=== PATIENT | male | born 1940 | race Caucasian/White ===

== ENCOUNTER 2016-10-30 11:15 | Emergency (ER) | payer MEDICARE, BC ==
[2016-10-30] MEDS ORDERED: Albuterol 2.5 MG/3 ML NEB.SOL* (0.083%) INH ONE (12:21)
[2016-10-30] MEDS ORDERED: Ipratropium 0.5MG/2.5ML NEB* 0.5 MG/2.5 ML NEB.SOLN INH ONE (12:22)
--- NOTE | 2016-10-30 12:25 | RAD ---
INDICATION: Cough. COMPARISON: None. TECHNIQUE: Dual energy PA and routine lateral views of the chest were obtained. REPORT: Patchy alveolar consolidation throughout the RIGHT lung most confluent at the lung base. Negative for volume loss. Small RIGHT pleural effusion. Negative for pneumothorax. Negative for cardiomegaly. Unremarkable central pulmonary vasculature and mediastinal contours. IMPRESSION: Patchy alveolar consolidation in the RIGHT lung consistent with pneumonia. Small RIGHT pleural effusion. Radiographic follow-up after therapy suggested to assess for resolution.
--- NOTE | 2016-10-30 12:46 | UC ---
Respiratory Complaint HPI - HPI Summary HPI Summary: COUGH X 2 DAYS + CHEST CONGESTION , NASAL CONGESTION , NO FEVER, + SOB ON EXERTION - History of Current Complaint Chief Complaint: UCRespiratory Stated Complaint: COUGH Time Seen by Provider: 10/30/16 11:56 Hx Obtained From: Patient Onset/Duration: Gradual Onset, Lasting Days - 2, Still Present Timing: Constant Severity Initially: Moderate Severity Currently: Moderate Character: Cough: Productive Aggravating Factors: Exertion, Deep Breaths Alleviating Factors: Bronchodilator Associated Signs And Symptoms: Positive: Dyspnea, Wheezing, URI, Nasal Congestion. Negative: Fever, Chills, Pleuritic Chest Pain, Hemoptysis, Dizziness, Calf Pain, Calf Swelling - Allergies/Home Medications Allergies/Adverse Reactions: Allergies Allergy/AdvReac Type Severity Reaction Status Date / Time No Known Allergies Allergy Verified 10/30/16 11:44 Home Medications: Home Medications Albuterol HFA INHALER* [Ventolin HFA Inhaler*] 2 puff INH Q4H PRN 10/30/16 [ History Confirmed 10/30/16] Allopurinol TAB* [Zyloprim 100 MG TAB*] 200 mg PO DAILY 10/30/16 [History Confirmed 10/30/16] Clopidogrel TAB* [Plavix TAB*] 75 mg PO DAILY 10/30/16 [History Confirmed ] Fluticasone HFA 110 mcg(NF) [Flovent HFA 110 mcg(NF)] 2 puff INH BID 10/30/16 [ History Confirmed 10/30/16] Fluticasone NASAL SPRAY 50MCG* [Flonase NASAL SPRAY 50MCG*] 2 spray BOTH NARES DAILY 10/30/16 [History Confirmed 10/30/16] Furosemide TAB* [Lasix TAB*] 20 mg PO DAILY 10/30/16 [History Confirmed 10/30/16 ] Guaifenesin-Codeine [Coditussin AC 200-10 mg/5Ml] 10 ml PO QID PRN 10/30/16 [ History Confirmed 10/30/16] Leflunomide [Arava] 20 mg PO DAILY 10/30/16 [History Confirmed 10/30/16] Nifedipine [Nifedipine ER] 90 mg PO DAILY 10/30/16 [History Confirmed 10/30/16] Pravastatin Sodium [Pravachol] 20 mg PO EVERY OTHER DAY 10/30/16 [History Confirmed 10/30/16] Spiriva Inhaler DEVICE* [Tiotropium Inhaler DEVICE*] 2 inh INH DAILY 10/30/16 [ History Confirmed 10/30/16] Valsartan [Valsartan 320 MG] 320 mg PO DAILY 10/30/16 [History Confirmed ] traZODone TAB* [Desyrel TAB*] 50 mg PO BEDTIME 10/30/16 [History Confirmed 10/30] PMH/Surg Hx/FS Hx/Imm Hx Cardiovascular History Of: Reports: Cardiac Disorders - CAD, Hypertension Respiratory History Of: Reports: COPD - Surgical History Surgical History: Yes Surgery Procedure, Year, and Place: UMBILICAL HERNIA REPAIR - Family History Known Family History: Negative: Diabetes - Social History Alcohol Use: Daily Alcohol Amount: TWO AT NIGHT Substance Use Type: None Smoking Status (MU): Former Smoker Type: Cigarettes When Did the Patient Quit Smoking/Using Tobacco: 1997 Review of Systems Constitutional: Fatigue Skin: Negative Eyes: Negative ENT: Nasal Discharge Respiratory: Shortness Of Breath, Cough Cardiovascular: Negative Gastrointestinal: Negative Genitourinary: Negative All Other Systems Reviewed And Are Negative: Yes Physical Exam Triage Information Reviewed: Yes Appearance: Well-Appearing, No Pain Distress, Well-Nourished Vital Signs: Initial Vital Signs Temp 99.7 F 10/30/16 11:45 Pulse 103 10/30/16 11:45 Resp 26 10/30/16 11:45 BP 100/71 10/30/16 11:45 Pulse Ox 93 10/30/16 11:45 Vital Signs Reviewed: Yes Eye Exam: Normal Eyes: Positive: Conjunctiva Clear ENT: Positive: Normal ENT inspection, Hearing grossly normal, Pharynx normal Neck: Positive: Supple, Nontender, No Lymphadenopathy Respiratory: Positive: Chest non-tender, No accessory muscle use, Decreased breath sounds Cardiovascular: Positive: Tachycardia Skin Exam: Normal UC Diagnostic Evaluation - Laboratory O2 Sat by Pulse Oximetry: 93 Respiratory Course/Dx - Differential Dx/Diagnosis Provider Diagnoses: PNEUMONIA Discharge - Discharge Plan Condition: Good Disposition: HOME Prescriptions: DOXYcycline CAP(*) [DOXYcycline 100MG CAP(*)] 100 mg PO BID #20 cap predniSONE TAB* [Deltasone TAB*] 40 mg PO DAILY #10 tab Referrals: Asif Baez MD [Primary Care Provider] - 2 Days
[2016-10-30 13:07] VITALS: BP 119/65
== END 2016-10-30 13:09 | disposition home or self-care (01) ==
LOC: UCCORT 11:15
DX: J18.9 Pneumonia, unspecified organism (principal); J91.8 Pleural effusion in other conditions classified elsewhere; I10 Essential (primary) hypertension; J44.9 Chronic obstructive pulmonary disease, unspecified; Z87.891 Personal history of nicotine dependence; I25.10 Atherosclerotic heart disease of native coronary artery without angina pectoris; Z79.02 Long term (current) use of antithrombotics/antiplatelets
CPT/HCPCS: 71020; 99213; G0463; J7644

== ENCOUNTER 2019-06-30 09:13 | Emergency (ER) | payer MEDICARE, BC ==
--- OUTSIDE RECORDS SUMMARY | 2019-06-30 09:20 | XMS REPORT | Continuity of Care Document ---
:1940 External Reference #:[id number] Author Name Sally Fan Care Team Providers Name Role Phone Asif Baez MD - Family Medicine Care Team Information Crusher Operator Lucretia Langley MD - Physical Medicine Care Team Information Crusher Operator & Rehabilitation Problems Active Problems Provider Date Benign essential hypertension Lamonte Mcclure MD Onset: 12/15/2016 Melena Lamonte Mcclure MD Onset: 12/15/2016 Duodenal ulcer without hemorrhage, without Lamonte Mcclure MD Onset: 06/08/2017 perforation AND without obstruction Iron deficiency anemia Lamonte Mcclure MD Onset: 06/08/2017 Retention of urine Janice Hernandez M.D. Onset: 08/05/2017 Chronic kidney disease stage 3 Janice Hernandez M.D. Onset: 08/05/2017 Benign prostatic hypertrophy with outflow Janice Hernandez M.D. 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 Onset: 11/21/2017 immunity measurement of gamma interferon antigen response without active tuberculosis High enzyme level in serum Abril Kaur M.D. Onset: 11/21/2017 Bacteremia caused by Gram-negative bacteria Abril Kaur M.D. Onset: 2017 Hypokalemia Abril Kaur M.D. Onset: 11/21/2017 Digestive symptom Lamonte Mcclure MD Onset: 02/03/2018 Backache Onset: 07/23/2017 Congestive heart failure Onset: 04/04/2017 Congestive heart failure Onset: 05/27/2017 Injury of kidney Onset: 05/27/2017 Anemia Onset: 05/27/2017 Syncope Onset: 07/22/2017 Sciatica Onset: 07/23/2017 Social History Type Date Description Comments Sex Unknown Tobacco Use Start: Unknown End: Former Cigarette Smoker 1-2 packers per day Unknown 1 Pack Daily for 45 years Smoking Status Reviewed: 03/28/19 Former Cigarette Smoker 1-2 packers per day 1 Pack Daily for 45 years Smokeless Tobacco Former Smokeless Tobacco User, Used Occasionally ETOH Use Uses Alcohol Daily 2 5oz glasses of red wine Tobacco Use Start: Unknown End: Patient is a former smoker Recreational Drug Use Denies Drug Use Allergies, Adverse Reactions, Alerts Active Allergies Reaction Severity Comments Date Pravachol 12/15/2016 Latex 09/30/2017 Medications Active Medications SIG Qnty Indications Ordering Date Provider Aspirin 81 1 by mouth every I25.10 Vignesh Maynard 06/01/2019 81mg day MWRosalee Cedillo M.D., FACC Tablets Pantoprazole Sodium 1 by mouth every 90tabs K31.89 Shoaib Perry [address] Pittman as instructed inj. 6units E78.2 Nicola Da Silva MD 02/23/2018 75mg/ml biweekly Solution Pen-Inject Potassium Chloride Take Two Tablets 180tabs Vignesh Maynard 02/02/2018 [place] ER By Mouth Every Masood Cedillo, FACC 20Meq Tablets Morning And 1 In ER The Evening Metoprolol Tartrate Take 1 And 1/2 270tabs R00.0 Vignesh Maynard 2017 Tablets By Mouth Masood Cedillo, FACC 25mg Tablets Two Times A Day Furosemide 1 by mouth every Unknown 40mg day Tablets Entresto Take One Tablet By 60tabs I25.10 Nicola Da Silva MD 24-26mg Mouth Twice A Day Tablets Imodium A-D 1 tab three times Unknown 2mg a day as needed Tablets Flonase Allergy 1 spray each nare Unknown Relief every day 50mcg/Act Suspension Allopurinol 1 by mouth every Unknown 100mg day Tablets Clopidogrel Take One Tablet By Unknown Bisulfate Mouth Every Day 75mg Start 4 Days Prior Tablets To Procedure Albuterol Sulfate nebulized bid Unknown (2.5mg/3ML) 0.083% Nebulizer Folic Acid 1 by mouth every Unknown 1mg day Tablets Oxycodone HCL 1 tab by mouth Unknown 5mg every 8 hours Capsules Proventil HFA 4 Times A Day as Unknown needed for 108(90Base) mcg/Act Shortness Of Aerosol Breath Flovent HFA 1 puffs twice Unknown daily 220mcg/Act Aerosol Spiriva Handihaler 1 inhalation every Unknown day 18mcg Capsules Immunizations CPT Code Status Date Vaccine Lot # [id number] Given Unknown Pneumococcal Conjugate Vaccine 13 Valent For Intramuscular Use Vital Signs Date Vital Result Comment 06/01/2019 1:07pm BP Systolic Sitting Left Arm 124 mmHg BP Diastolic Sitting Left Arm 80 mmHg Heart Rate 76 /min Respiratory Rate 16 /min Height 70 inches 5'10" Weight 204.00 lb BMI (Body Mass Index) 29.3 kg/m2 BSA (Body Surface Area) 2.10 m2 [place] body weight in kilograms 75 kg O2 % BldC Oximetry 96 % 05/09/2019 1:02pm Weight 196.00 lb Results Test Date Facility Test Result H/L Range Note Urine Dipstick 05/09/2019 [facility]a Color yellow Yellow Ua Clarity clear Clear Ua Leuko neg Negative Ua Nitrite neg Negative Ua Urobilinogen 0.2 0.2 - 1.0 E.U./dL Ua Protein neg Negative Ua PH 6.0 Low 6.5-7.5 Ua Blood neg Negative Ua Specific [place] 1.015 1.010-1.030 Ua Ketones neg Negative Ua Bilirubin neg Negative Ua Glucose neg Negative Procedures Date Code Description Status 06/01/2019 37318 EKG-Tracing And Report Completed 05/09/2019 94928 Measurement Post Voiding Residual Urine By Completed Ultrasound,Non-Imaging 05/09/2019 89730 complex uroflowmetry electronic Completed 06/23/2017 [id number] Colonoscopy Completed 04/04/2002 [id number] Colonoscopy Completed Medical Devices Description No Information Available Encounters Type Date Location Provider Dx Diagnosis Office Visit 06/01/2019 Cardiology Office Olivia Sabrinas R60.0 Localized edema 1:00p B., PA I25.5 Ischemic cardiomyopathy I25.10 Athscl heart disease of [place] coronary artery w/o ang pctrs I10 Essential (primary) hypertension E78.2 Mixed hyperlipidemia I65.23 Occlusion and stenosis of bilateral carotid arteries Office Visit 05/09/2019 1:00p Urology Miguel Fernandez, N40.1 Benign prostatic PA hyperplasia with lower urinary tract symp Office Visit 02/01/2019 10:45a GI Shoaib Perry MD K31.89 Other diseases of stomach and duodenum R60.0 Localized edema Assessments Date Code Description Provider 06/01/2019 R60.0 Localized edema Olivia, Marlyss B., PA 06/01/2019 I25.5 Ischemic cardiomyopathy Olivia, Marlyss B., PA 06/01/2019 I25.10 Atherosclerotic heart disease of [place] Olivia, Marlyss B. , PA coronary artery with 06/01/2019 I10 Essential (primary) hypertension Olivia, Marlyss B., PA 06/01/2019 E78.2 Mixed hyperlipidemia Olivia, Marlyss B., PA 06/01/2019 I65.23 Occlusion and stenosis of bilateral carotid Olivia, Marlyss B., PA arteries 05/09/2019 N40.1 Benign prostatic hyperplasia with lower Miguel Fernandez PA urinary tract sympto 02/01/2019 K31.89 Other diseases of stomach and duodenum Shoaib Perry MD 02/01/2019 R60.0 Localized edema Shoaib Perry MD Plan of Treatment Future Appointment(s):12/03/2019 2:00 pm - Teo Baker, PA at Cardiology Kpxdkf6308/06/2019 11:30 am - Shoaib Perry MD at GI02/01/2019 - Shoaib Perry MDK31.89 Other diseases of stomach and duodenumNew Medication: Pantoprazole Sodium 20 mg - 1 by mouth every dayComments:plan on cutting back on ppi diarrhea has resolvedconsider boost or ensureFollow up:6 mlidtlD50.0 Localized edema Functional Status Functional Condition Comment Date Status Requires assistance with ambulating Active Glasses Active Complete lower and upper and lower dentures Active Mental Status Description No Information Available Referrals Description No Information Available
--- OUTSIDE RECORDS SUMMARY | 2019-06-30 09:20 | XMS REPORT | Continuity of Care Document ---
:1940 External Reference #:[id number] Author Name Miguel Fernandez PA Address [address], [address] [place] [address] Care Team Providers Name Role Phone Asif Baez MD - Family Medicine Care Team Information Bonding Machine Setter Lucretia Langley MD - Physical Medicine Care Team Information Bonding Machine Setter & Rehabilitation Problems Active Problems Provider Date [...] MD Onset: 09/30/2017 Atherosclerotic heart disease of [place] Nicola Da Silva MD Onset: 11/16/2017 coronary [...] Medications SIG Qnty Indications Ordering Date Provider Pantoprazole Sodium 1 by mouth every 90tabs K31.89 Shoaib Perry, [address] Pittman as instructed inj. 6units E78.2 Nicola Da Silva MD 02/23/2018 75mg/ml biweekly Solution Pen-Inject Potassium Chloride Take Two Tablets 180tabs Vignesh Maynard 02/02/2018 [place]ress[place] ER By Mouth Every M.Masood, FACC 20Meq Tablets Morning And 1 In ER The Evening Metoprolol Tartrate Take 1 And /2 270tabs R00.0 Vignesh Maynard 2017 Tablets By [...] Start 4 Days Prior Tablets To Procedure Aspirin Take One Tablet By 30taVignesh Olmedo 81mg Tablets Mouth Every Day Masood Cedillo, FACC Albuterol Sulfate nebulized bid Unknown (2.5mg/3ML) 0.083% [...] CPT Code Status Date Vaccine Lot # [id number] Given Unknown Pneumococcal Conjugate Vaccine 13 Valent For Intramuscular Use Vital Signs Date Vital Result Comment 05/09/2019 1:02pm Weight 196.00 lb 02/01/2019 10:51am BP Systolic Sitting Left Arm 120 mmHg BP Diastolic Sitting Left Arm 80 mmHg Heart Rate 78 /min Respiratory Rate 16 /min Height 69 inches 5'9" Weight 200.00 lb BMI (Body Mass Index) 29.5 kg/m2 BSA (Body Surface Area) 2.07 m2 [place] body weight in kilograms 73 kg O2 % BldC Oximetry 96 % Ra Results Description No Information Available Procedures Date Code Description Status 05/09/2019 71038 Measurement Post Voiding Residual Urine By Completed Ultrasound,Non-Imaging 06/23/2017 [id number] Colonoscopy Completed 04/04/2002 [id number] Colonoscopy Completed Medical Devices Description No Information Available Encounters Type Date Location Provider Dx Diagnosis Office Visit 05/09/2019 Urology Miguel Fernandez, N40.1 Benign prostatic 1:00p PA hyperplasia with lower urinary tract symp Office Visit 02/01/2019 GI Shoaib Perry MD K31.89 Other diseases of 10:45a stomach and duodenum R60.0 Localized edema Office Visit 11/22/2018 2:20p Cardiology Olivia, I25.5 Ischemic Office Teo Mack cardiomyopathy PA I25.10 Athscl heart disease of [place] coronary artery w/o ang pctrs I10 Essential (primary) hypertension E78.2 Mixed hyperlipidemia I65.23 Occlusion and stenosis of bilateral carotid arteries Assessments Date Code Description Provider 05/09/2019 N40.1 Benign prostatic hyperplasia with lower IannottaMiguel PA urinary tract sympto 02/01/2019 K31.89 Other diseases of stomach and duodenum Shoaib Perry MD 02/01/2019 R60.0 Localized edema Shoaib Perry MD 11/22/2018 I25.5 Ischemic cardiomyopathy Teo Baker, PA 11/22/2018 I25.10 Atherosclerotic heart disease of [place] Teo Baker , YANIRA coronary artery with 11/22/2018 I10 Essential (primary) hypertension Teo Baker, PA 11/22/2018 E78.2 Mixed hyperlipidemia Teo Baker, PA 11/22/2018 I65.23 Occlusion and stenosis of bilateral carotid Teo Baker, PA arteries Plan of Treatment Future Appointment(s):08/06/2019 11:30 am - Shoaib Perry MD at GI06/01/2019 1:00 pm - Teo Baker PA at Cardiology Vomgfx5302/01/2019 - Shoaib Perry MDK31.89 Other diseases of stomach and duodenumNew Medication: Pantoprazole Sodium 20 mg - 1 by mouth every dayComments:plan on cutting back on ppi diarrhea has resolvedconsider boost or ensureFollow up:6 ceusluV55.0 Localized edema Functional Status Functional Condition Comment Date Status Requires assistance with ambulating Active Glasses Active Complete lower and upper and lower dentures Active Mental Status Description No Information Available Referrals Description No Information Available
--- OUTSIDE RECORDS SUMMARY | 2019-06-30 09:20 | XMS REPORT | Continuity of Care Document ---
:1940 External Reference #:[id number] Author Name Teo Baker PA (transmitted by agent of provider Vignesh Maynard) Address [address], [address] [place] [address] Care Team Providers Name Role Phone Asif Baez MD - Family Medicine Care Team Information Tong Setter Lucretia Langley MD - Physical Medicine Care Team Information Tong Setter & Rehabilitation Problems Active Problems Provider [...] MD Onset: 09/30/2017 Atherosclerotic heart disease of [place] Nicola Da Silva MD Onset: 11/16/2017 coronary [...] every I25.10 Vignesh Maynard 06/01/2019 81mg day ES Cedillo M.D., [facility] Tablets Pantoprazole Sodium 1 by mouth every 90tabs K31.89 Shoaib Perry [address] Pittman as instructed inj. 6units E78.2 Nicola Da Silva MD 02/23/2018 75mg/ml biweekly Solution Pen-Inject Potassium Chloride Take Two Tablets 180tabs Vignesh Maynard 02/02/2018 Tressa ER By Mouth Every Masood Cedillo, FACBrina 20Meq Tablets Morning And 1 In ER [...] CPT Code Status Date Vaccine Lot # [id number] Given Unknown Pneumococcal Conjugate Vaccine 13 Valent For Intramuscular Use Vital Signs Date Vital Result Comment 06/01/2019 1:07pm BP Systolic Sitting Left Arm 124 mmHg BP Diastolic Sitting Left Arm 80 mmHg Heart Rate 76 /min Respiratory Rate 16 /min Height 70 inches 5'10" Weight 204.00 lb BMI (Body Mass Index) 29.3 kg/m2 BSA (Body Surface Area) 2.10 m2 [place] body weight in kilograms 75 kg O2 [...] 6.5-7.5 Ua Blood neg Negative Ua Specific [place] 1.015 1.010-1.030 Ua Ketones neg Negative Ua Bilirubin neg Negative Ua Glucose neg Negative Procedures Date Code Description Status 06/01/2019 11914 EKG-Tracing And Report Completed 05/09/2019 63622 Measurement Post Voiding Residual Urine By Completed Ultrasound,Non-Imaging 05/09/2019 00312 complex uroflowmetry electronic Completed 06/23/2017 [id number] Colonoscopy Completed 04/04/2002 [id number] Colonoscopy Completed Medical Devices Description No Information Available Encounters Type Date Location Provider Dx Diagnosis Office Visit 06/01/2019 Cardiology Office Teo Baker R60.0 Localized edema 1:00p B. PA I25.5 Ischemic cardiomyopathy I25.10 Athscl heart disease of [place] coronary artery w/o ang pctrs I10 Essential [...] Code Description Provider 06/01/2019 R60.0 Localized edema Mary Ann Bakerlyss B., PA 06/01/2019 I25.5 Ischemic cardiomyopathy Olivia Marlyss B., PA 06/01/2019 I25.10 Atherosclerotic heart disease of [place] Olivia, Marlyss B. , PA coronary artery with 06/01/2019 I10 Essential (primary) hypertension Olivia Marlyss B., PA 06/01/2019 E78.2 Mixed hyperlipidemia Olivia, Marlyss B., PA 06/01/2019 I65.23 Occlusion and stenosis of bilateral carotid Mary Ann Bakerlyss B., PA arteries 05/09/2019 N40.1 Benign prostatic hyperplasia with lower Miguel Fernandez PA urinary tract sympto 02/01/2019 K31.89 Other diseases of stomach and duodenum Shoaib Perry MD 02/01/2019 R60.0 Localized edema Shoaib Perry MD Plan of Treatment Future Appointment(s):12/03/2019 2:00 pm - Olivia, Marlyss B., PA at Cardiology Ppyngr6608/06/2019 11:30 am - Shoaib Perry MD at GI02/01/2019 - Shoaib Perry MDK31.89 Other diseases of stomach and duodenumNew Medication: Pantoprazole Sodium 20 mg - 1 by mouth every dayComments:plan on cutting back on ppi diarrhea has resolvedconsider boost or ensureFollow up:6 [id number] Localized edema Functional Status Functional Condition Comment Date Status Requires assistance with ambulating Active Glasses Active Complete lower and upper and lower dentures Active Mental Status Description No Information Available Referrals Description No Information Available
--- NOTE | 2019-06-30 10:01 | UC ---
UC General HPI - HPI Summary HPI Summary: Patient is 79 year old gentleman, who present today to the urgent care with fever today morning. He has extensive history with history of colon disease and urosepsis in the past and was advised to calm for evaluation whenever he has a temperature of 102 and above. He reports that he had cough for past 2 weeks and was seen by his primary care doctor who prescribed amoxicillin on 06/19/19 but he had to stop it after 4 or 5 doses due to diarrhea. His gave him Tylenol after he had fever and he is feeling great now his blood pressure is slightly high in the clinic today but he said that he took his medication just an hour ago. Currently he denies any other symptoms than the mild cough and feels completely fine. Currently taking another left over unknown antibiotic "large white pill" for self-diagnosed cellulitis on right briceño. No sick contacts . Denies any new soap, detergent , cosmetics, food or a possible exposure. Denies any chest pain or shortness of breath . Denies any abdominal pain , nausea or vomiting , diarrhea or constipation. - History of Current Complaint Chief Complaint: UCGeneralIllness Stated Complaint: FEVER,CHILLS,WEAK Time Seen by Provider: 06/30/19 09:44 Hx Obtained From: Patient Pain Intensity: 0 - Allergy/Home Medications Allergies/Adverse Reactions: Allergies Allergy/AdvReac Type Severity Reaction Status Date / Time latex Allergy Rash Verified 06/30/19 09:24 pravastatin [From Pravachol] Allergy Unknown Verified 06/30/19 09:24 Reaction Details Home Medications: Home Medications Acetaminophen TAB* [Tylenol TAB*] 650 mg PO Q4H PRN 06/30/19 [History Confirmed 06/30/19] Albuterol 2.5MG/3ML (0.083%)* [Ventolin 2.5 MG/3 ML NEB.TRACE*] 2.5 mg INH BID PRN 06/30/19 [History Confirmed 06/30/19] Alirocumab [Praluent] 75 mg SC Q14D 06/30/19 [History Confirmed 06/30/19] Aspirin EC TAB* [Ecotrin EC Low Dose 81 MG*] 81 mg PO DAILY 06/30/19 [History Confirmed 06/30/19] Fluticasone HFA 220 mcg(NF) [Flovent HFA 220 Mcg(NF)] 1 puff INH BID 06/30/19 [ History Confirmed 06/30/19] Folic Acid TAB* [Folvite TAB*] 1 mg PO DAILY 06/30/19 [History Confirmed ] Loperamide CAP* [Imodium CAP*] 2 mg PO TID PRN 06/30/19 [History Confirmed 06/30] Metoprolol Tartrate TAB* [Lopressor TAB*] 37.5 mg PO BID 06/30/19 [History Confirmed 06/30/19] Pantoprazole TAB (NF) [Protonix TAB (NF)] 20 mg PO DAILY 06/30/19 [History Confirmed 06/30/19] Potassium Chlor TAB* [Klor Con ER TAB*] 20 meq PO QPM 06/30/19 [History Confirmed 06/30/19] Potassium Chlor TAB* [Klor Con ER TAB*] 40 meq PO QAM 06/30/19 [History Confirmed 06/30/19] Sacubitril/Valsartan (NF) [Entresto (NF)] 1 tab PO BID 06/30/19 [ History Confirmed 06/30/19] oxyCODONE TAB* [Roxycodone TAB 5 mg*] 5 mg PO Q8H 06/30/19 [History Confirmed ] predniSONE TAB* [Deltasone 10 MG TAB*] 10 mg PO ONCE 06/30/19 [History Confirmed 06/30/19] PMH/Surg Hx/FS Hx/Imm Hx - Additional Past Medical History Additional PMH: Past Medical History : Yes: CAD, Bypass, hypertension, COPD,Arthritis, C. diff, Fluid Retention, GERD, Gout, Kidney Dysfunction, Urosepsis x 3 Past Surgical History: Right Endartectomy, 2017, [facility]; Triple CABG, 2015, [facility]; Umbilical Herniorrhaphy, Family History : non contributory Social History : Daily alcohol, former smoker, no drug use. Previously Healthy: Yes - Surgical History Surgical History: Yes Surgery Procedure, Year, and Place: Right Endartectomy, 2016, [facility]; Triple CABG, 2015, [facility]; Umbilical Herniorrhaphy, - Family History Known Family History: Positive: Non-Contributory Negative: Diabetes - Social History Alcohol Use: Two Drinks Nightly Alcohol Amount: TWO AT NIGHT Substance Use Type: None Smoking Status (MU): Former Smoker Type: Cigarettes Amount Used/How Often: 2 PPD x 46 Years When Did the Patient Quit Smoking/Using Tobacco: 1997 Review of Systems All Other Systems Reviewed And Are Negative: Yes Constitutional: Positive: Fever Skin: Positive: Negative Eyes: Positive: Negative ENT: Positive: Negative Respiratory: Positive: Cough Cardiovascular: Positive: Negative Gastrointestinal: Positive: Negative Genitourinary: Positive: Negative Motor: Positive: Negative Neurovascular: Positive: Negative Musculoskeletal: Positive: Negative Neurological: Positive: Negative Psychological: Positive: Negative Is Patient Immunocompromised?: No Physical Exam - Summary Physical Exam Summary: Physical Exam: Const: Appears well. No signs of apparent distress present. Alert and oriented x 3. Musculo: Walks with a normal gait. Head/Face: Atraumatic, normocephalic on inspection. Eyes: EOMI and PERRLA in both eyes. Conjunctivae clear. No discharge noted ENT: Hearing normal, TM with impacted cerumen on the right side, left-sided normal appearing No tenderness to palpation on maxillary and frontal sinus. Mild pharyngeal erythema without any exudates . Uvula is midline. No cervical or submandibular lymphadenopathy noted. Respiratory: Respirations are unlabored. Lungs clear to auscultation bilaterally, no wheezing , rhonchi or rales noted . CVS: Regular rate and Rhythm, S1S2 normal , no murmurs identified. Extremities: Peripheral circulation is grossly normal. Pulses 2+ Abdomen : Soft non tender , nondistended , Bowel sounds present . No guarding , rebound tenderness or rigidity noted. Skin: No lesions or rash located on the upper extremities or on the lower extremities. Neuro: Cranial nerves II to XII intact, motor and sensory intact. DTR Intact bilaterally. Mood is normal. Affect is normal. Triage Information Reviewed: Yes Vital Signs: Initial Vital Signs Temp 98.5 F 06/30/19 09:22 Pulse 74 06/30/19 09:22 Resp 18 06/30/19 09:22 BP 182/129 06/30/19 09:22 Pulse Ox 98 06/30/19 09:22 Vital Signs Reviewed: Yes Diagnostics - Radiology No standard instances Radiology Interpretation Completed By: Radiologist - Chest Xrays: IMPRESSION: HYPERINFLATION, CONSISTENT WITH COPD. NO ACTIVE CARDIOPULMONARY DISEASE. Course/Dx - Course Course Of Treatment: During the visit today we discussed that he is feeling fine now but will rule out any source of infection. UA: neg for infection Rapid strep: neg Chest x-ray: IMPRESSION: HYPERINFLATION, CONSISTENT WITH COPD. NO ACTIVE CARDIOPULMONARY DISEASE. Flu test: neg CBC: obtained. He had impacted cerumen in the right ear wax so it was irrigated today and re examination was normal . His blood pressure was slightly high today but he reports that he took the blood pressure medication about an hour before he came. Repeat blood pressure was 105/76. We discussed that he has no source of infection that is available at this time, discussed the option of starting the azithromycin for a possible walking pneumonia but they want to hold off at this time. I advised them that somebody will call with the test results tomorrow when they're available if anything needs to be changed and he and his agreed with the plan. I also advised them to go to the ER if she develops any symptoms or have another fever - Diagnoses Provider Diagnosis: Fever and chills, Viral syndrome, Impacted cerumen of right ear Discharge ED - Sign-Out/Discharge Documenting (check all that apply): Patient Departure All imaging exams completed and their final reports reviewed: Yes - Discharge Plan Condition: Stable Disposition: HOME Patient Education Materials: Viral Syndrome (ED) Referrals: Asif Baez MD [Primary Care Provider] - 2 Days Additional Instructions: Monitor for any worsening of the symptoms Somebody will call you with the test results when they're available tomorrow if there is any need to change in the plan or for any abnormal test results. Follow up with your primary care doctor in 2 days. Patients blood pressure slightly high in Urgent care today , plan follow up with PCP for better control within 4 weeks Return to Urgent care / ER if symptoms get worse. - Billing Disposition and Condition Condition: STABLE Disposition: Home
[2019-06-30 10:43] LABS: Influenza A Molecular NEGATIVE (Negative); Influenza B Molecular NEGATIVE (Negative)
[2019-06-30 10:55] VITALS: BP 105/76
[2019-06-30 15:34] LABS: ABS Lymphocytes 0.1 10^3/ul (1.0-4.8); ABS Monocytes 0.3 10^3/ul (0-0.8); ABS Neutrophils 9.6 10^3/ul (1.5-7.7); Eosinophil % 0.4 %; Hematocrit 38 % (42-52); Hemoglobin 12.6 g/dL (14.0-18.0); Lymphocyte % 1.1 %; Mean Corpuscular HGB Conc 33 g/dL (31-36); Mean Corpuscular Hemoglobin 32 pg (27-31); Mean Corpuscular Volume 96 fL (80-94); Mean Platelet Volume 8.8 fL (7.4-10.4); Nucleated Red Blood Cells % 0.2; Platelet Count 217 10^3/uL (150-450); Red Cell Distribution Width 15 % (10-15); White Blood Count 10.1 10^3/uL (3.5-10.8)
== END 2019-06-30 11:16 | disposition home or self-care (01) ==
LOC: UCCORT 09:13
DX: B34.9 Viral infection, unspecified (principal); R50.9 Fever, unspecified; H61.21 Impacted cerumen, right ear; R05 Cough; I25.10 Atherosclerotic heart disease of native coronary artery without angina pectoris; Z95.1 Presence of aortocoronary bypass graft; J44.9 Chronic obstructive pulmonary disease, unspecified; K21.9 Gastro-esophageal reflux disease without esophagitis; Z79.899 Other long term (current) drug therapy; I10 Essential (primary) hypertension; M10.9 Gout, unspecified; Z88.8 Allergy status to other drugs, medicaments and biological substances; Z79.82 Long term (current) use of aspirin; Z91.040 Latex allergy status; Z87.891 Personal history of nicotine dependence
CPT/HCPCS: 36415; 71046; 81003; 85025; 87651; 99213; G0463